=== PATIENT | male | born 1980 | race African-American/Black ===

== ENCOUNTER 2019-12-04 20:55 | Emergency (ER) | payer MEDICAID ==
[~2019-12-04] VITALS: Ht 182.9 cm; Wt 84.0 kg
[2019-12-04] MEDS ORDERED: LORAZEPAM 1MG TABLET PO ONE (21:45)
[2019-12-04 22:30] VITALS: BP 128/60
== END 2019-12-05 00:02 | disposition home or self-care (01) ==
LOC: EDBD 20:55 → ER 20:55
DX: T40.7X1A Poisoning by cannabis (derivatives), accidental (unintentional), initial encounter (principal); R41.0 Disorientation, unspecified; F12.129 Cannabis abuse with intoxication, unspecified; F15.10 Other stimulant abuse, uncomplicated; Y92.89 Other specified places as the place of occurrence of the external cause
CPT/HCPCS: 99283